=== PATIENT | female | born 1945 | race Caucasian/White ===

== ENCOUNTER 2020-11-30 10:10 | Emergency (ER) | payer OTHER, MEDICAID ==
[~2020-11-30] VITALS: Ht 149.9 cm; Wt 48.5 kg
[2020-11-30 10:14] VITALS: BP_SYST 174
--- NOTE | 2020-11-30 10:14 | NUR ---
Placed in room 6. Placed on histology aide, blood pressure machine and pulse oximeter. To gown for exam. Side rails up. Report given to DAHIANA Gambino.
--- NOTE | 2020-11-30 10:18 | NUR ---
Pt arrived via BLS to ED room 6 with complaints of G-Tube removal 11/29/2020 at 1800, there is no rutherford in place. Pt is trach to vent with settings of AC 12, 500, 40%, PEEP 5. Pt denies any pain at this time. AOx4.
[2020-11-30] MEDS ORDERED: MORPHINE 4 MG/ML INJ. SYRINGE IM ONE (10:30)
[2020-11-30] MEDS ORDERED: PROCHLORPERAZINE EDISYLATE 10 MG/2 ML VIAL IM ONE (10:30)
--- NOTE | 2020-11-30 10:30 | NUR ---
Correction - there is a rutherford in place of where the G-Tube was dislodged.
--- NOTE | 2020-11-30 11:05 | NUR ---
Dr. Galvan at bedside, pt was premedicated. Dr. Galvan inserted 20 Fr. G-tube, pt tolerated well. Denies any pain at this time.
[2020-11-30] MEDS ORDERED: GASTROGRAFIN 120 ML ONE (11:18)
[2020-11-30 12:36] VITALS: BP_SYST 149
--- NOTE | 2020-11-30 12:37 | NUR ---
Patient given written and verbal discharge instructions and verbalizes understanding. ER MD discussed with patient the results and treatment provided. Patient in stable condition. ID arm band removed. No Rx given. Patient educated on pain management and to follow up with PMD. Pain Scale 0/10. Opportunity for questions provided and answered. Medication side effect fact sheet provided.
== END 2020-11-30 12:36 | disposition home or self-care (01) ==
LOC: SED 10:10
DX: K94.23 Gastrostomy malfunction (principal); N28.9 Disorder of kidney and ureter, unspecified
CPT/HCPCS: 43762; 74240; 96372; 99284; J0780; J2270; Q9963